=== PATIENT | male | born 1975 | race Caucasian/White ===

== ENCOUNTER 2018-11-27 20:02 | Emergency (ER) | payer OTHER ==
[2018-11-27 20:11] VITALS: BP 145/93
--- NOTE | 2018-11-27 21:00 | ED Physician Documentation ---
History of Present Illness - Stated complaint Stated Complaint: LEFT HAND LACERATION - Chief complaint Chief Complaint: Laceration - History obtained from History obtained from: Patient - History of Present Illness Timing: Prior to arrival - Additonal information Additional information: Patient is a previously healthy right-handed 43-year-old male presenting with flap laceration to the ulnar aspect of his left palm that occurred just prior to arrival. Patient reports that he was re-sheathing a knife when it went through the sheath and struck him in the left palm. Patient denies other injuries. Patient does report bleeding but denies significant change in sensation, strength, range of motion to hand. Tetanus unknown. No other improving or worsening factors noted. Review of Systems Skin: reports: Laceration (s) Musculoskeletal: denies: Extremity pain, Joint pain PD PAST MEDICAL HISTORY - Past Medical History Past Medical History: No - Past Surgical History Past Surgical History: No - Present Medications Home Medications: Ambulatory Orders Medication Instructions Recorded Confirmed No Known Home Medications 11/27/18 11/27/18 - Allergies Allergies/Adverse Reactions: Allergies Allergy/AdvReac Type Severity Reaction Status Date / Time No Known Drug Allergies Allergy Verified 11/27/18 20:11 - Social History Does the pt smoke?: No Smoking Status: Never smoker Does the pt drink ETOH?: No Does the pt have substance abuse?: No - Immunizations Immunizations are current?: Yes - POLST Patient has POLST: No PD ED PE NORMAL - Vitals Vital signs reviewed: Yes - General General: Alert and oriented X 3, No acute distress, Well developed/nourished - HEENT HEENT: Atraumatic, Moist mucous membranes - Cardiac Cardiac: Strong equal pulses - Respiratory Respiratory: No respiratory distress - Derm Derm: Normal color, Warm and dry, No rash, Other (Flap laceration to palmar aspect on ulnar side of left handWith minimal damage to underlying structures. No retained foreign body, signs of infection, or other complication.Appr oximately 1 inch in length.) - Extremities Extremities: No deformity, No tenderness to palpate - Neuro Neuro: Alert and oriented X 3, No motor deficit, No sensory deficit - Psych Psych: Normal mood, Normal affect Results - Vitals Vitals: Vital Signs - 24 hr 11/27/18 20:05 Temperature 36.5 C Heart Rate 81 Respiratory 15 Rate Blood Pressure 145/93 H O2 Saturation 96 Oxygen O2 Source Room air Procedures - Laceration (location) Upper extremity left Length in cm: 2 Wound type: Flap Neurovascular status: Sensory intact, Motor intact, Vascular intact Anesthesia: LET Wound Preparation: Irrigated copiously NS Skin layer closure: Nylon, Sutures - enter # (4-0 imple sutures, total #6) Other: Patient tolerated well, No complications, Neurovascular intact, Dressing applied, Tetanus booster given Complexity: Simple PD MEDICAL DECISION MAKING - ED course Complexity details: re-evaluated patient, considered differential, d/w patient ED course: Patient presenting with laceration to left palm. Tetanus updated. Let applied for anesthetic effect and wound copiously irrigated and repaired in the ED without issue. Do not feel patient requires imaging or other interventions at this time. Discussed wound care, timing of stitch removal, supportive cares, return precautions, and follow-up. Patient voiced understanding and is comfortable with discharge plan. Departure - Departure Disposition: 01 Home, Self Care Clinical Impression: Laceration Instructions: ED Laceration All Follow-Up: your,doctor [Other] - Within 3 Days Comments: Please keep wound clean and dry using running water and soap only. Do not submerge wound. May apply bacitracin or Neosporin as needed. Please be aware of bandaging so as to not accidentally remove stitches. Please be gentle with the hand as not reopen wound. Return to ED, urgent care, primary care physician in 10 to 14 days for stitch removal. Return to ED sooner if experience signs of infection, wound opening, or other concerns.
[2018-11-27] MEDS ORDERED: TETANUS/DIPHTHERIA/PERTUSSIS 0.5 ML SYRINGE IM ONE (21:16)
[2018-11-27] MEDS ORDERED: LIDOCAINE-EPINEPH-TETRACAINE 3 ML SYRINGE TOP STA (21:16)
== END 2018-11-27 22:24 | disposition home or self-care (01) ==
LOC: ED 20:02
DX: S61.412A Laceration without foreign body of left hand, initial encounter (principal); W26.0XXA Contact with knife, initial encounter; Y93.89 Activity, other specified
CPT/HCPCS: 12001; 90471; 99282